=== PATIENT | female | born 1940 | race Caucasian/White ===

== ENCOUNTER 2017-11-08 09:49 | Emergency (ER) | payer OTHER, BC ==
[~2017-11-08] VITALS: Ht 154.9 cm; Wt 96.9 kg
[~2017-11-08 09:49] MED LIST: COQ10 SG 100 S1 EACH PO; COUMADIN,JANTO2.5 MG PO; DIOVAN HCT 11 TABLET PO; LASIX40 MG PO; LYRICA75 MG PO; Levothroid,Synthroid PO; POTASSIUM CHLO20 ME1 PO; PROVENTIL,2.5 MG/0.5 IH; SYNTHROID75 MCG PO; VERAPAMIL HCL80 MG PO
[2017-11-08 10:37] LABS: HEMATOCRIT 41.5 % (36.0-46.0); HEMOGLOBIN 13.9 G/DL (11.9-15.5); MCHC 33.5 G/DL (30.0-36.0); MCV 86.6 FL (83-99); PLATELET COUNT 243 K/uL (156-360); RBC DIS.WIDTH-CV 13.3 % (11.8-14.6); RBC DIS.WIDTH-SD 42.2 % (39-53); RED BLOOD COUNT 4.79 M/uL (3.80-5.20); WHITE BLOOD COUNT 7.3 K/uL (4.1-10.2)
[2017-11-08 10:45] LABS: CHLORIDE 99 mEq/L (99-109); POTASSIUM 4.4 mEq/L (3.7-5.4); SODIUM 135 mEq/L (136-147)
[2017-11-08 10:46] LABS: GLUCOSE 204 mg/dL (70-99)
[2017-11-08 10:50] LABS: CREATININE 0.8 mg/dL (0.6-1.3); GFR ESTIMATE (CALCULATED) > 59 mL/min/
[2017-11-08 10:51] LABS: UREA NITROGEN (BUN) 28 mg/dL (9-23)
[2017-11-08 10:57] LABS: TROP-I INTERPRETATION NEGATIVE; TROPONIN-I < 0.01 ng/mL (0.0-0.30)
[2017-11-08 12:33] VITALS: BP 132/56
== END 2017-11-08 12:36 | disposition home or self-care (01) ==
LOC: EME 09:49
PROVIDERS: Emergency Medicine
DX: R00.0 Tachycardia, unspecified (principal); E86.0 Dehydration; R42 Dizziness and giddiness; I10 Essential (primary) hypertension; J45.909 Unspecified asthma, uncomplicated; E11.9 Type 2 diabetes mellitus without complications; Z79.84 Long term (current) use of oral hypoglycemic drugs; Z79.01 Long term (current) use of anticoagulants
CPT/HCPCS: 71046; 80048; 84484; 85027; 93005; 99281; 99285; J7030